=== PATIENT | female | born 1970 | race Two or more races ===

== ENCOUNTER 2020-04-06 19:35 | Inpatient (IN) | payer SELFPAY ==
[~2020-04-06] VITALS: Ht 162.6 cm; Wt 72.3 kg
--- NOTE | 2020-04-06 19:43 | Emergency Room Report ---
History of Present Illness General Chief Complaint: Dyspnea/Respdistress Source: Patient, EMS Present Illness HPI Patient presents with complaints of shortness of breath Brought in by paramedics from home patient has been short of breath for the past 2 days Increased cough and congestion Subjective low-grade fever denies any vomiting or diarrhea she does have mild Myalgia as well diffusely denies any focal weakness denies any recent travel Unknown regarding covid-19 contact Allergies: Coded Allergies: No Known Allergies (Unverified , 04/06/20) COVID-19 Screening Contact w/high risk pt: No Recent Travel to affected area: No Experienced COVID-19 symptoms?: Yes COVID-19 symptoms experienced: Shortness of Breath COVID-19 Testing performed TRANSLATOR: No Patient History Past Medical History: see triage record Reviewed Nursing Documentation: PMH: Agreed; PSxH: Agreed Nursing Documentation-PMH Past Medical History: No History, Except For Hx Cardiac Problems: No Hx Hypertension: No Hx Pacemaker: No Hx Asthma: Yes Hx COPD: No Hx Diabetes: Yes Hx Cancer: No Hx Gastrointestinal Problems: No Hx Dialysis: No History Of Psychiatric Problem: No Hx Neurological Problems: No Hx Seizures: No Review of Systems All Other Systems: negative except mentioned in HPI Physical Exam Vital Signs Date Time Temp Pulse Resp B/P (MAP) Pulse Ox O2 Delivery O2 Flow Rate FiO2 04/06/20 19:28 99.9 106 18 108/76 (87) 98 Non-Rebreather 15.0 Sp02 EP Interpretation: reviewed, normal General Appearance: mild distress - short of breath Head: normocephalic, atraumatic Eyes: bilateral eye PERRL, bilateral eye EOMI ENT: hearing grossly normal, normal pharynx, TMs + canals normal, uvula midline Neck: full range of motion, supple, no meningismus, no bony tend Respiratory: no accessory muscle use, crackles - Bilaterally and appears tachypneic Cardiovascular #1: regular rate, rhythm, tachycardia Gastrointestinal: normal bowel sounds, non tender, soft, no mass, no organomegaly, non-distended, no guarding, no hernia, no pulsatile mass, no rebound Genitourinary: no CVA tenderness Musculoskeletal: normal inspection Neurologic: motor strength/tone normal, oriented x3, sensory intact, responsive Psychiatric: normal inspection Skin: no rash Lymphatic: normal inspection, no adenopathy Procedures Critical Care Time Critical Care Time 50 minutes for multiple re-evaluations initial critical presentation concern for respiratory deterioration and possible not including any procedural time Medical Decision Making Diagnostic Impression: Primary Impression: Dyspnea Additional Impressions: Pneumonia COVID-19 ER Course Multiple differentials including but not limited to cardiac, cardiopulmonary, infectious process entertained Patient remains on high flow oxygenation X-ray imaging does show concerning findings of bilateral patchy infiltrates consistent with likely covid-19 Patient has further testing performed further IV hydration antibiotics And admitted for further inpatient care in serious and concerning condition Labs Test 04/06/20 19:45 White Blood Count 6.8 K/UL (4.8-10.8) Red Blood Count 4.87 M/UL (4.20-5.40) Hemoglobin 15.1 G/DL (12.0-16.0) Hematocrit 46.0 % (37.0-47.0) Mean Corpuscular Volume 94 FL (80-99) Mean Corpuscular Hemoglobin 31.0 PG (27.0-31.0) Mean Corpuscular Hemoglobin Concent 32.9 G/DL (32.0-36.0) Red Cell Distribution Width 12.9 % (11.6-14.8) Platelet Count 264 K/UL (150-450) Mean Platelet Volume 8.2 FL (6.5-10.1) Neutrophils (%) (Auto) 74.4 % (45.0-75.0) Lymphocytes (%) (Auto) 17.2 % (20.0-45.0) Monocytes (%) (Auto) 7.2 % (1.0-10.0) Eosinophils (%) (Auto) 0.2 % (0.0-3.0) Basophils (%) (Auto) 1.0 % (0.0-2.0) Sodium Level 135 MMOL/L (136-145) Potassium Level 6.1 MMOL/L (3.5-5.1) Chloride Level 98 MMOL/L (98-107) Carbon Dioxide Level 23 MMOL/L (21-32) Anion Gap 13 mmol/L (5-15) Blood Urea Nitrogen 10 mg/dL (7-18) Creatinine 0.4 MG/DL (0.55-1.30) Estimat Glomerular Filtration Rate > 60 mL/min (>60) Glucose Level 262 MG/DL (74-106) Lactic Acid Level 2.10 mmol/L (0.4-2.0) Calcium Level 7.6 MG/DL (8.5-10.1) Total Bilirubin 0.9 MG/DL (0.2-1.0) Aspartate Amino Transf (AST/SGOT) 65 U/L (15-37) Alanine Aminotransferase (ALT/SGPT) 35 U/L (12-78) Alkaline Phosphatase 88 U/L (46-116) Total Creatine Kinase 228 U/L (26-308) Creatine Kinase MB < 0.5 NG/ML (0.0-3.6) Creatine Kinase MB Relative Index 0.2 Troponin I 0.000 ng/mL (0.000-0.056) Pro-B-Type Natriuretic Peptide 61 pg/mL (0-125) Total Protein 7.6 G/DL (6.4-8.2) Albumin 2.3 G/DL (3.4-5.0) Globulin 5.3 g/dL Albumin/Globulin Ratio 0.4 (1.0-2.7) Lipase 265 U/L (73-393) Rhythm Strip Diag. Results EP Interpretation: yes Rate: 105 Rhythm: no PVC's, no ectopy, other - sinus Tach Chest X-Ray Diagnostic Results Chest X-Ray Diagnostic Results : Chest X-Ray Ordered: Yes # of Views/Limited/Complete: 1 View Indication: Shortness of Breath EP Interpretation: Yes Interpretation: no effusion, no pneumothorax, other - Bilateral patchy infiltrates Impression: Other - Bilateral patchy infiltrates Electronically Signed by: Jennifer Rivera DO Last Vital Signs Date Time Temp Pulse Resp B/P (MAP) Pulse Ox O2 Delivery O2 Flow Rate FiO2 04/06/20 19:28 99.9 106 18 108/76 (87) 98 Non-Rebreather 15.0 Status: improved Disposition: ADMITTED INPATIENT Condition: Critical Jennifer Rivera DO Apr 06, 2020 19:43
[2020-04-06 19:55] VITALS: BP 115/76
--- NOTE | 2020-04-06 20:00 | NUR ---
ED Nurse Note: pt BREANA MORAN RA 94 from home c/o SOB, fever and productive cough x 3 days. pt arrived with NRB mask with O2 at 15L satting at 99%, EMS report that pt was satting at 89% on RA. pt states that she has also been vomiting for 3 days, states that she took nyquil at 0800 today and used her albuterol inhaler at home without relief of symptoms. pt is noted to be tachpneic, skin is warm dry and intact, she is AOx4. oral temp was 98.1
[2020-04-06 20:18] LABS: EOSINOPHILS % (AUTO) 0.2 % (0.0-3.0); HEMOGLOBIN 15.1 G/DL (12.0-16.0); LYMPHOCYTES % (AUTO) 17.2 % (20.0-45.0); MEAN CORPUSCULAR VOLUME 94 FL (80-99); MONOCYTES % (AUTO) 7.2 % (1.0-10.0); NEUTROPHILS % (AUTO) 74.4 % (45.0-75.0); PLATELET COUNT 264 K/UL (150-450); RED BLOOD COUNT 4.87 M/UL (4.20-5.40); RED CELL DISTRIBUTION WIDTH 12.9 % (11.6-14.8); WHITE BLOOD COUNT 6.8 K/UL (4.8-10.8)
--- NOTE | 2020-04-06 20:40 | NUR ---
ED Nurse Note: ERMD gave verbal order to decrease pt's O2 if she could tolerate it. pt put on 6L NC, satting at 95% while talking on the phone
[2020-04-06] MEDS ORDERED: Azithromycin 500 MG in NS 275 ML IV ONE (20:45)
[2020-04-06 20:49] LABS: ALANINE AMINOTRANSFERASE 35 U/L (12-78); ALBUMIN 2.3 G/DL (3.4-5.0); ALBUMIN/GLOBULIN RATIO 0.4 (1.0-2.7); ALKALINE PHOSPHATASE 88 U/L (46-116); ANION GAP 13 mmol/L (5-15); ASPARTATE AMINO TRANSFERASE 65 U/L (15-37); BILIRUBIN,TOTAL 0.9 MG/DL (0.2-1.0); BLOOD UREA NITROGEN 10 mg/dL (7-18); CALCIUM 7.6 MG/DL (8.5-10.1); CARBON DIOXIDE 23 MMOL/L (21-32); CHLORIDE 98 MMOL/L (98-107); CKMB < 0.5 NG/ML (0.0-3.6); CREATINE KINASE 228 U/L (26-308); CREATININE 0.4 MG/DL (0.55-1.30); POTASSIUM 6.1 MMOL/L (3.5-5.1); SODIUM 135 MMOL/L (136-145)
--- NOTE | 2020-04-06 20:50 | NUR ---
ED Nurse Note: received call from lab stating that pt's potassium is 6.1 and that the sample hemolyzed. ERMD gave verbal instruction for AM redraw once pt is admitted to telemetry floor. messaged relayed to lab
[2020-04-06] MEDS ORDERED: ALBUTEROL2.5 MG/3 M INH (21:01)
--- NOTE | 2020-04-06 21:25 | NUR ---
ED Nurse Note: lactic acid redraw sent to lab
--- NOTE | 2020-04-06 21:57 | NUR ---
ED Nurse Note: report given to MARGY Em
--- NOTE | 2020-04-06 22:10 | NUR ---
NURSE NOTES: Received report from MARIE Duggan. Patient transferred from E.R to room 211-1 via [facility] in Covid-19 isolation protocol. Patient is awake, alert and oriented x 4. Oriented to room and telemetry unit. Placed quality assurance monitor, shows sinus rhythm. Patient is on oxygen via nasal cannula @ 6Lpm, saturating 90 %. IV site is on right AC g-20 saline lock that is patent and intact. Safety measures are in placed, call light and bedside table within reach. Will call MD for admission orders.
[2020-04-06 22:30] VITALS: BP 128/61
--- NOTE | 2020-04-06 22:40 | NUR ---
NURSE NOTES: Called Dr. Castro and received admission orders. Will carry out. At this time patient is in stable condition.
[2020-04-06] MEDS ORDERED: Sodium Polystyrene Sulfonate 15gm Powder ORAL ONE (23:30)
[2020-04-07] VITALS: BP 118/66
[2020-04-07 04:00] VITALS: BP 104/51
[2020-04-07 04:10] LABS: ANION GAP 8 mmol/L (5-15); BLOOD UREA NITROGEN 8 mg/dL (7-18); CALCIUM 7.4 MG/DL (8.5-10.1); CARBON DIOXIDE 29 MMOL/L (21-32); CHLORIDE 104 MMOL/L (98-107); CREATININE 0.6 MG/DL (0.55-1.30); POTASSIUM 3.3 MMOL/L (3.5-5.1); SODIUM 140 MMOL/L (136-145)
--- NOTE | 2020-04-07 07:33 | NUR ---
HAND-OFF: Report given to MARIE Garcia. Patient is on bed, awake, no complaints made at this time. Plan of care endorsed.
[2020-04-07 08:00] VITALS: BP 102/66
--- NOTE | 2020-04-07 08:00 | NUR ---
NURSE NOTES: Recvd pt. Pt is AOx4 Malian speaking, pt is on NC @ 5L with O2sat 91-92%, Dr Castro is aware. Pt is on residential monitor showing SR , Pt has right AC 20g c/d/i and locked.Bed in lowest locked position, call light within reach, will continue with plan of care
[2020-04-07] MEDS ORDERED: Azithromycin 250 MG in D5W 275 ML IV SCH ×2 (09:00→22:00)
--- NOTE | 2020-04-07 10:14 | Diagnostic Imaging Report ---
Procedure: XRAY Chest 1v Reason for study: Reason For Exam: SOB Comparison films: None. FINDINGS: A single one view chest is obtained. Vascularity is normal. There are bilateral infiltrates. Cardiac and mediastinal silhouette are within normal limits. CP angles are sharp. The bony thorax appear unremarkable. IMPRESSION: Bilateral infiltrates.
--- NOTE | 2020-04-07 11:58 | NUR ---
CASE MANAGEMENT: REVIEW 50 YEAR OLD FEMALE CC: SOB . Hx ASTHMA SI: COVID-19 R/O . PNA T 99.9 HR 106 RR 35 BP 108/76 SAT 98% NON-REBREATHER FLOW RATE 15.0 NA 135 K 6.1 GLUCOSE 262 IS: AZITHROMYCIN IV X1 NS IVF BOLUS X1 KAYEXALATE 30MG ORAL X1 K-DUR 20MEQ ORAL X1 PATIENT ADMITTED TO TELEMETRY UNIT 04/06/2020 DCP: PATIENT IS FROM HOME
[2020-04-07 12:00] VITALS: BP 126/81
[2020-04-07 16:00] VITALS: BP 127/67
--- NOTE | 2020-04-07 19:30 | NUR ---
NURSE NOTES: Received pt and report from MARIE Garcia. Observed pt resting in bed with both eyes closed; arousable to voice. Pt is A/Ox4. monitor car operator is in placed, IV site intact, asymptomatic, and patent. Bed is in the lowest position and locked. Call light and beside table is within reach. No signs/symptoms of acute distress noted at this time. Will continue plan of care.
--- NOTE | 2020-04-07 19:45 | History and Physical Report ---
DATE OF ADMISSION: 04/06/2020 HISTORY OF PRESENT ILLNESS: This is a 50-year-old female came to the emergency room for short of breath, hypoxia, COVID positive. Patient is in isolation. PAST MEDICAL HISTORY: None. ALLERGIES: None. FAMILY HISTORY: Noncontributory. SOCIAL HISTORY: Lives at home. PHYSICAL EXAMINATION: GENERAL: This is a young female who is currently short of breath and hypoxic on nonrebreathing mask. VITAL SIGNS: Blood pressure 126/81, pulse 80, respirations 19, saturation 93%, temperature 98.1. HEENT: NAD. CHEST: Bilateral scattered crackles. CARDIOVASCULAR: Regular rhythm. Slightly tachycardia. ABDOMEN: Soft. Positive bowel sounds. Nontender. EXTREMITIES: No edema. GENITOURINARY: Deferred. LABORATORY DATA: White counts are normal 6.8, hemoglobin 15. Chemistry panel, BUN 8, creatinine 0.6, glucose is 280, potassium 3.3. IMAGING: Chest x-ray, bilateral infiltrate. ASSESSMENT: 1. COVID pneumonia. 2. Hyperkalemia, now with hypokalemia. 3. Diabetes. PLAN: 1. We will currently continue dexamethasone, azithromycin, and KCl replacement. 2. Continue oxygen and bronchodilator treatments. 3. Pulmonary consult and ID consult. Gokul Castro M.D. DR: GIULIA JOB#: [id number] CC:
[2020-04-07 20:00] VITALS: BP 123/75
[2020-04-07] MEDS: Azithromycin 250 MG in D5W 275 ML IV SCH (22:15)
[2020-04-08] VITALS: BP 132/83
--- NOTE | 2020-04-08 02:30 | NUR ---
NURSE NOTES: Observed pt asleep in bed. No signs/symptoms of acute distress noted at this time. Will continue plan of care.
[2020-04-08 04:00] VITALS: BP 131/77
--- NOTE | 2020-04-08 06:45 | NUR ---
NURSE NOTES: Dr. Castro made aware that pt's COVID-19 swabs came back positive this morning.
--- NOTE | 2020-04-08 07:23 | NUR ---
HAND-OFF: Report given to MARIE Woodson. Plan of care endorsed.
[2020-04-08 08:00] VITALS: BP 108/72
--- NOTE | 2020-04-08 08:30 | NUR ---
NURSE NOTES: Received report from MARIE Wharton. Pt A/O x4. No s/s of acute respiratory and cardiac distress. On O2 2L NC. SL on right AC 20G patent and intact. Bed in low position, side rails up x2 and call light within reach. Will continue to monitor.
[2020-04-08 12:00] VITALS: BP 121/75
--- NOTE | 2020-04-08 15:37 | NUR ---
NURSE NOTES: Spoke with patient with help of Karthik Pollock RN to translate regarding receiving medication Remdesivir IV. She verbally consented to getting the medication with Karthik Pollock RN as witness to getting medication.
--- NOTE | 2020-04-08 15:59 | NUR ---
CASE MANAGEMENT:REVIEW 04/08/20 SI: BILATERAL COVID PNA 97.9 78 20 121/75 93% ON 6L/NC IS: IV REMDESIVIR X1 THEN Q24HRS (TOTAL 5 DOSES) DECADRON PO QD IV AZITHROMYCIN Q24 : TELEMETRY STATUS
[2020-04-08 16:00] VITALS: BP 127/85
[2020-04-08] MEDS ORDERED: Remdesivir Fact Sheet MISC SCH (16:00)
--- NOTE | 2020-04-08 16:30 | NUR ---
NURSE NOTES: Received order from Dr. Castro to transfer patient to med/surg floor. Informed charge nurse MARIE Bernal of order for transfer. Awaiting room.
[2020-04-08] MEDS ORDERED: Loading Dose:Remdesivir 200mg/NS 210ml IV SCH (17:00)
--- NOTE | 2020-04-08 19:23 | NUR ---
HAND-OFF: Report given to MARIE Wharton.
--- NOTE | 2020-04-08 19:25 | NUR ---
NURSE NOTES: Patient received from Kandice SALAZAR. Patient is in stable condition. Calm and comfortable in bed. IV site patent at the Left AC 22G. Bed is low and locked. Call light and bedside table within reach. Has an order for transfer to Med-surg, awaiting transfer. Off glass sagger. Will continue to monitor.
[2020-04-08 20:00] VITALS: BP 147/94
--- NOTE | 2020-04-08 20:45 | Progress Note ---
DATE: 04/08/2020 SUBJECTIVE: This is a 50-year-old female currently overweight, came to the emergency room short of breath and COVID positive. The patient is currently in bed on high oxygen, saturating about 93%. PHYSICAL EXAMINATION: VITAL SIGNS: Her blood pressure is 121/75, pulse 78, no fever. CHEST: Bilateral decreased breath sounds. CARDIOVASCULAR: Regular rhythm. No gallop. No murmur. ABDOMEN: Soft, positive bowel sounds, nontender. EXTREMITIES: No edema. GENITOURINARY: Deferred. LABORATORY DATA: The patient has no laboratories. ASSESSMENT: 1. Hypoxia. 2. COVID pneumonia. PLAN: We will add Remdesivir today. Continue Decadron. Continue Zithromax, oxygen, bronchodilator treatment. Pulmonary and ID is on consult. Gokul Castro M.D. DR: ARIE JOB#: [id number] CC:
--- NOTE | 2020-04-08 21:30 | Consultation ---
DATE OF CONSULTATION: 04/08/2020 PULMONARY CONSULTATION CONSULTING PHYSICIAN: Luke Thomas MD. HISTORY OF PRESENT ILLNESS: This is a 50-year-old female brought in with shortness of breath. Patient has reported this symptom for the last several days. She also reports low-grade fever. She also reports myalgias. There is no reported history of exposure to COVID-19. Patient was seen and worked up in the emergency room. Her imaging studies showed bilateral infiltrates. Patient was hypoxic. Her COVID-19 PCR is positive. PAST MEDICAL HISTORY: Notable for history of asthma, diabetes mellitus. No cardiac history. REVIEW OF SYSTEMS: Denies any headaches, hematemesis, melena, or hematochezia. PHYSICAL EXAMINATION: GENERAL: Reveals a 50-year-old female. HEENT: Unremarkable. CHEST: Diminished breath sounds bilaterally with normal heart sounds. ABDOMEN: Soft. EXTREMITIES: There is no edema. VITAL SIGNS: O2 saturation 93% on 6 liters of oxygen, respirations 20, heart rate is 74, she is afebrile. LABORATORY DATA: Lab testing shows normal CBC and BMP. Potassium 6.1 initially, now 3.3, glucose 218. IMPRESSION: 1. Acute COVID-19 pneumonia with hypoxemia. 2. Diabetes mellitus. 3. Hyperkalemia, now corrected. DISCUSSION: Admit to the hospital. Patient would benefit from IV remdesivir. We will discuss with Dr. Castro. Order oxygen and pulmonary hygiene. Follow carefully. Luke Thomas M.D. DR: DIANA JOB#: [id number] CC:
[2020-04-08] MEDS: Azithromycin 250 MG in D5W 275 ML IV SCH (22:08)
--- NOTE | 2020-04-08 23:10 | NUR ---
TRANSFER TO FLOOR: Patient transferred to [facility] [place], per Dr. Castro. Report given to MARIE Daniels. Belongings list checked/signed and transferred with pt. No signs/symptoms of acute distress noted. Pt in stable condition. Ordered transferred.
--- NOTE | 2020-04-08 23:20 | NUR ---
NURSE NOTES: Received report MARIE Wharton. Patient transferred from [facility]. ANO x4. On nasal cannula 6L with no C/O SOB at this time. No distress noted. Patient is ambulatory. Skin intact. IV intact and patent. Belongings accounted for. Bed locked and in lowest position. Call light in reach. Will continue to monitor.
[2020-04-09] VITALS: BP 135/79
[2020-04-09 04:00] VITALS: BP 132/84
--- NOTE | 2020-04-09 05:32 | Pulmonology Progress Note ---
Subjective Interval Events: Seen by ID; remdesivir started Constitutional: Reports: no symptoms HEENT: Repors: no symptoms Respiratory: Reports: no symptoms Cardiovascular: Reports: no symptoms Gastrointestinal/Abdominal: Reports: no symptoms Genitourinary: Reports: no symptoms Allergies: Coded Allergies: No Known Allergies (Unverified , 04/06/20) Objective Last 24 Hour Vital Signs Date Time Temp Pulse Resp B/P (MAP) Pulse Ox O2 Delivery O2 Flow Rate FiO2 04/09/20 04:00 97.5 73 20 132/84 (100) 91 04/09/20 00:00 98.2 88 20 135/79 (97) 91 04/08/20 21:00 Nasal Cannula 6.0 04/08/20 20:00 99.9 94 19 147/94 (111) 89 04/08/20 16:00 95 04/08/20 16:00 98.6 84 20 127/85 (99) 93 04/08/20 12:00 97.9 78 20 121/75 (90) 93 04/08/20 12:00 78 04/08/20 12:00 Nasal Cannula 6.0 04/08/20 08:00 98.1 82 20 108/72 (84) 93 04/08/20 08:00 82 Intake and Output 04/08/20 04/09/20 19:00 07:00 Intake Total 500 ml 500 ml Balance 500 ml 500 ml Intake Oral 500 ml 500 ml # Voids 2 2 General Appearance: no acute distress HEENT: normocephalic Respiratory: chest wall non-tender, decreased breath sounds Cardiovascular: normal peripheral pulses, normal rate Abdomen: normal bowel sounds Microbiology Date/Time Source Procedure Growth Status 04/06/20 20:00 Blood Blood Culture - Preliminary NO GROWTH AFTER 48 HOURS Resulted 04/06/20 19:45 Blood Blood Culture - Preliminary NO GROWTH AFTER 48 HOURS Resulted 04/06/20 19:45 Nasopharynx Coronavirus COVID-19 PCR ([facility]) - Final Complete Current Medications Medications (Trade) Dose Ordered Sig/Sanaz Route PRN Reason Start Time Stop Time Status Last Admin Dose Admin Azithromycin 250 mg/Dextrose 275 ml @ 275 mls/hr Q24HRS IV 04/09/20 23:00 04/14/20 22:59 Dexamethasone (Decadron) 6 mg DAILY ORAL 04/09/20 09:00 05/08/20 08:59 Remdesivir 100 mg/ Sodium Chloride 250 ml @ 250 mls/hr Q24H IV 04/09/20 17:00 04/12/20 17:59 Assessment/Plan Assessment/Plan IMPRESSION: 1. Acute COVID-19 pneumonia with hypoxemia. 2. Diabetes mellitus. 3. Hyperkalemia, now corrected. DISCUSSION: Continue IV remdesivir. Continue oxygen and pulmonary hygiene. Follow carefully. Arnold Avendano Omar Syed MD Apr 09, 2020 05:32
[2020-04-09 05:47] LABS: BASOPHILS % (AUTO) 0.4 % (0.0-2.0); EOSINOPHILS % (AUTO) 0.1 % (0.0-3.0); HEMOGLOBIN 13.7 G/DL (12.0-16.0); LYMPHOCYTES % (AUTO) 23.1 % (20.0-45.0); MEAN CORPUSCULAR VOLUME 94 FL (80-99); MONOCYTES % (AUTO) 7.9 % (1.0-10.0); NEUTROPHILS % (AUTO) 68.5 % (45.0-75.0); PLATELET COUNT 394 K/UL (150-450); RED BLOOD COUNT 4.45 M/UL (4.20-5.40); RED CELL DISTRIBUTION WIDTH 12.2 % (11.6-14.8); WHITE BLOOD COUNT 6.9 K/UL (4.8-10.8)
--- NOTE | 2020-04-09 05:53 | NUR ---
NURSE NOTES: Patient's oxygen saturation ranging between 85-91% on 6L nasal cannula. Left message for Dr. Thomas. Awaiting call back. brown stock washer made aware. Will continue to monitor the patient.
[2020-04-09 07:07] LABS: ALANINE AMINOTRANSFERASE 23 U/L (12-78); ALBUMIN/GLOBULIN RATIO 0.4 (1.0-2.7); ALKALINE PHOSPHATASE 83 U/L (46-116); ANION GAP 10 mmol/L (5-15); ASPARTATE AMINO TRANSFERASE 22 U/L (15-37); BILIRUBIN,DIRECT < 0.1 MG/DL (0.0-0.3); BILIRUBIN,TOTAL 0.3 MG/DL (0.2-1.0); BLOOD UREA NITROGEN 8 mg/dL (7-18); CALCIUM 8.3 MG/DL (8.5-10.1); CARBON DIOXIDE 25 MMOL/L (21-32); CHLORIDE 104 MMOL/L (98-107); CREATININE 0.5 MG/DL (0.55-1.30); POTASSIUM 3.5 MMOL/L (3.5-5.1); SODIUM 139 MMOL/L (136-145)
--- NOTE | 2020-04-09 07:23 | NUR ---
NURSE NOTES: Report received from MARIE Daniels. Patient is in bed, no SOB, alert and oriented x 4, bed in lowest position with breaks engaged and alarm on, IV line on left AC patent and intact, on droplet and contact isolation for COVID 19, on 02 at 6 L/min tolerating well, denies any pain or discomfort at this time, will continue to monitor and proceed with plan of care. Call light within reach.
[2020-04-09 08:00] VITALS: BP 123/65
--- NOTE | 2020-04-09 10:27 | NUR ---
CASE MANAGEMENT:REVIEW SI;BILATERAL COVID-19 PNEUMONIA. 99.9 94 20 147/94 89% 6L NC BG 263 ALB 2.0 IS;ZITHROMAX IV Q24 REMDESIVIR IV Q24 DEXAMETHASONE PO QD MED SURG STATUS DCP;PATIENT IS FROM HOME
[2020-04-09 12:00] VITALS: BP 131/76
--- NOTE | 2020-04-09 12:15 | Consultation ---
DATE OF CONSULTATION: 04/09/2020 INFECTIOUS DISEASE CONSULTATION CONSULTING PHYSICIAN: David Mercedes MD. REFERRING PHYSICIAN: Mirza Castro MD. REASON FOR CONSULTATION: COVID-19 pneumonia. HISTORY OF PRESENTING ILLNESS: This is a 50-year-old lady with history of diabetes and asthma, who came in with shortness of breath. She was found to be COVID-19 positive and an Infectious Disease consultation has been obtained for antibiotics. PAST MEDICAL HISTORY: 1. History of diabetes. 2. History of asthma. SOCIAL HISTORY: She does not smoke, drink, or use drugs. FAMILY HISTORY: Noncontributory. REVIEW OF SYSTEMS: RESPIRATORY: No fever or chills. No cough. She does have shortness of breath. No chest pain. CARDIAC: No chest pain. No palpitation. No dizziness. No syncope. GASTROINTESTINAL: No nausea. No vomiting. No abdominal pain or diarrhea. MEDICATIONS: As an inpatient, she is on azithromycin. Remdesivir was started yesterday, dexamethasone. ALLERGIES: No known drug allergies. PHYSICAL EXAMINATION: VITAL SIGNS: Temperature of 97.5, T-max of 99.9, pulse of 72, respiratory rate 18, blood pressure 123/65. O2 saturation of 91% on 6 liters oxygen Examination is deferred due to COVID-19. LABORATORY AND DIAGNOSTIC DATA: White count 6.9, hemoglobin 13.7, hematocrit 42, MCV 94, platelet count of 394,000 with neutrophils of 68%. Sodium 139, potassium 3.5, chloride 104, bicarb 25, BUN 8, creatinine 0.5. Glucose 263. Calcium 8.3. Total bilirubin 0.3, direct bilirubin less than 0.1. AST 22, ALT 23, alkaline phosphatase 83. Total protein 7.2, albumin of 2. Lipase of 265. Blood cultures are negative. 04/06/2020, COVID-19 test was positive. Chest x-ray showing bilateral infiltrates. ASSESSMENT: This is a 50-year-old lady with history of diabetes and asthma, who comes in with shortness of breath and is found to have, 1. COVID-19 pneumonia on 6 liters of oxygen. O2 saturation 91%. 2. Diabetes. 3. Asthma. PLAN: 1. The patient was started on Remdesivir yesterday. Continue three more days. 2. Discontinue azithromycin. 3. The patient was started on dexamethasone yesterday. Continue 8 more days. 4. We will follow up cultures. 5. Continue isolation. I would like to thank Dr. Castro for this consultation. David Mercedes M.D. DR: EWA JOB#: [id number] CC:
[2020-04-09 16:00] VITALS: BP 129/66
[2020-04-09] MEDS: Remdesivir 100mg 100 MG in NS 230 ML IV SCH (16:33)
[2020-04-09] MEDS ORDERED: Maintenance Dose:Remdesivir 100mg/NS 230ml x 4 Doses IV SCH (17:00)
--- NOTE | 2020-04-09 19:20 | NUR ---
NURSE NOTES: received patient on bed, awake and verbally responsive. with iv line on the left ac, saline lock. denies any pain or discomfort. cannula at 6 lpm. no sob. continent x2. reiterated to call and ask for assistance. call light and light button within easy reach. bed locked and in lowest position. will continue plan of care.
--- NOTE | 2020-04-09 19:46 | NUR ---
HAND-OFF: Report given to MARIE Ayers.
[2020-04-09 20:00] VITALS: BP 143/90
--- NOTE | 2020-04-09 21:30 | Progress Note ---
DATE: 04/09/2020 SUBJECTIVE: This is a 50-year-old obese female on high oxygen. Short of breath is improving, tachycardia time to time. PHYSICAL EXAMINATION: VITAL SIGNS: Stable. CHEST: Bilateral decreased breath sounds. CARDIOVASCULAR: Regular rhythm. ABDOMEN: Soft. EXTREMITIES: CCE. ASSESSMENT: 1. COVID pneumonia. 2. Obesity. PLAN: 1. We will currently continue antibiotic. 2. Continue isolation and bronchodilator treatments. Gokul Castro M.D. DR: Kemar JOB#: [id number] CC:
[2020-04-09] MEDS ORDERED: Azithromycin 250 MG in D5W 275 ML IV SCH (23:00)
[2020-04-10] VITALS: BP 140/87
[2020-04-10 04:00] VITALS: BP 131/89
[2020-04-10 06:14] LABS: BASOPHILS % (AUTO) 0.8 % (0.0-2.0); EOSINOPHILS % (AUTO) 0.3 % (0.0-3.0); HEMATOCRIT 43.4 % (37.0-47.0); HEMOGLOBIN 14.5 G/DL (12.0-16.0); LYMPHOCYTES % (AUTO) 23.9 % (20.0-45.0); MEAN CORPUSCULAR VOLUME 93 FL (80-99); MONOCYTES % (AUTO) 6.7 % (1.0-10.0); NEUTROPHILS % (AUTO) 68.3 % (45.0-75.0); PLATELET COUNT 454 K/UL (150-450); RED BLOOD COUNT 4.65 M/UL (4.20-5.40); RED CELL DISTRIBUTION WIDTH 12.4 % (11.6-14.8); WHITE BLOOD COUNT 7.1 K/UL (4.8-10.8)
[2020-04-10 06:29] LABS: ALANINE AMINOTRANSFERASE 28 U/L (12-78); ALBUMIN 2.2 G/DL (3.4-5.0); ALBUMIN/GLOBULIN RATIO 0.4 (1.0-2.7); ALKALINE PHOSPHATASE 89 U/L (46-116); ANION GAP 15 mmol/L (5-15); ASPARTATE AMINO TRANSFERASE 28 U/L (15-37); BILIRUBIN,DIRECT < 0.1 MG/DL (0.0-0.3); BILIRUBIN,TOTAL 0.2 MG/DL (0.2-1.0); BLOOD UREA NITROGEN 12 mg/dL (7-18); CALCIUM 8.2 MG/DL (8.5-10.1); CARBON DIOXIDE 19 MMOL/L (21-32); CHLORIDE 104 MMOL/L (98-107); CREATININE 0.6 MG/DL (0.55-1.30); SODIUM 138 MMOL/L (136-145)
--- NOTE | 2020-04-10 07:32 | NUR ---
HAND-OFF: Report given to danyelle zavala.patient is on bed, awake.no sob. afebrile. call light and light button within easy reach. plan of care endorsed.
--- NOTE | 2020-04-10 07:49 | NUR ---
NURSE NOTES: Report received from Andria SALAZAR. Patient seen on rounds, AxOx4, Syrian speaking but can speak some Portuguese, not in distress, on O2 at 6lpm via NC, afebrile. PIV on LAC patent and intact. Pt is continent and ambulatory. Isolation precautions maintained, bed low and locked, siderails up x2, call light placed within reach and instructed to call nurse for assistance. Will continue to monitor.
[2020-04-10 08:00] VITALS: BP 122/79
--- NOTE | 2020-04-10 10:04 | Pulmonology Progress Note ---
Subjective Interval Events: Seen by ID; etta Constitutional: Reports: no symptoms HEENT: Repors: no symptoms Respiratory: Reports: no symptoms Cardiovascular: Reports: no symptoms Gastrointestinal/Abdominal: Reports: no symptoms Genitourinary: Reports: no symptoms Allergies: Coded Allergies: No Known Allergies (Unverified , 04/06/20) Objective Last 24 Hour Vital Signs Date Time Temp Pulse Resp B/P (MAP) Pulse Ox O2 Delivery O2 Flow Rate FiO2 04/10/20 08:00 97.5 72 30 122/79 (93) 92 04/10/20 04:00 97.8 67 18 131/89 (103) 94 04/10/20 00:00 98.4 70 18 140/87 (104) 95 04/09/20 20:00 97.5 67 18 143/90 (107) 95 04/09/20 16:00 97.5 80 18 129/66 (87) 90 04/09/20 12:00 98.2 77 18 131/76 (94) 92 Intake and Output 04/09/20 04/10/20 19:00 07:00 Intake Total 300 ml 400 ml Balance 300 ml 400 ml Intake Oral 300 ml 400 ml # Voids 2 2 Objective deferred due to COVID Laboratory Tests 04/10/20 05:30: Sodium Level 138, Potassium Level 4.0, Chloride Level 104, Carbon Dioxide Level 19L, Anion Gap 15, Blood Urea Nitrogen 12, Creatinine 0.6, Estimat Glomerular Filtration Rate > 60, Glucose Level 286H, Calcium Level 8.2L, Total Bilirubin 0.2, Direct Bilirubin < 0.1, Aspartate Amino Transf (AST/SGOT) 28, Alanine Aminotransferase (ALT/SGPT) 28, Alkaline Phosphatase 89, Total Protein 7.4, Albumin 2.2L, Globulin 5.2, Albumin/Globulin Ratio 0.4L 04/10/20 06:00: White Blood Count 7.1, Red Blood Count 4.65, Hemoglobin 14.5, Hematocrit 43.4, Mean Corpuscular Volume 93, Mean Corpuscular Hemoglobin 31.1H, Mean Corpuscular Hemoglobin Concent 33.4, Red Cell Distribution Width 12.4, Platelet Count 454H, Mean Platelet Volume 6.8, Neutrophils (%) (Auto) 68.3, Lymphocytes (%) (Auto) 23.9, Monocytes (%) (Auto) 6.7, Eosinophils (%) (Auto) 0.3, Basophils (%) (Auto ) 0.8 Current Medications Medications (Trade) Dose Ordered Sig/Sanaz Route PRN Reason Start Time Stop Time Status Last Admin Dose Admin Dexamethasone (Decadron) 6 mg DAILY ORAL 04/09/20 09:00 05/08/20 08:59 04/10/20 08:46 Remdesivir 100 mg/ Sodium Chloride 250 ml @ 250 mls/hr Q24H IV 04/09/20 17:00 04/12/20 17:59 04/09/20 16:33 Assessment/Plan Assessment/Plan 1. COVID-19 pneumonia 2. Diabetes. 3. Asthma. 4. Hypoxemia PLAN care noted ID noted Remdesivir isolation monitor imaging respiratory care impression, plan, and exam edited and reviewed in detail care discussed with Dariel Gibson MD Apr 10, 2020 10:04
--- NOTE | 2020-04-10 10:37 | Infectious Diseases Prog Note ---
Assessment/Plan Assessment/Plan antibiotics : remdesivir 6.25.20 - A 1. COVID-19 pneumonia on 6 liters of oxygen. O2 saturation 92%. patient aware benefits outweigh risks, consents to use of remdesivir 2. Diabetes. 3. Asthma P 1. continue remdesivir EUA day 3 2. continue dexamethasone day 3 3. continue isolation Subjective Constitutional: Denies: fever, chills Respiratory: Reports: shortness of breath; Denies: dry cough Gastrointestinal/Abdominal: Denies: nausea, vomiting, diarrhea Musculoskeletal: Denies: pain Allergies: Coded Allergies: No Known Allergies (Unverified , 04/06/20) Objective Last 24 Hour Vital Signs Date Time Temp Pulse Resp B/P (MAP) Pulse Ox O2 Delivery O2 Flow Rate FiO2 04/10/20 08:00 97.5 72 30 122/79 (93) 92 04/10/20 04:00 97.8 67 18 131/89 (103) 94 04/10/20 00:00 98.4 70 18 140/87 (104) 95 04/09/20 20:00 97.5 67 18 143/90 (107) 95 04/09/20 16:00 97.5 80 18 129/66 (87) 90 04/09/20 12:00 98.2 77 18 131/76 (94) 92 Height (Feet): 5 Height (Inches): 4.00 Weight (Pounds): 159 Laboratory Tests Test 04/10/20 05:30 04/10/20 06:00 Sodium Level 138 MMOL/L (136-145) Potassium Level 4.0 MMOL/L (3.5-5.1) Chloride Level 104 MMOL/L (98-107) Carbon Dioxide Level 19 MMOL/L (21-32) L Anion Gap 15 mmol/L (5-15) Blood Urea Nitrogen 12 mg/dL (7-18) Creatinine 0.6 MG/DL (0.55-1.30) Estimat Glomerular Filtration Rate > 60 mL/min (>60) Glucose Level 286 MG/DL (74-106) H Calcium Level 8.2 MG/DL (8.5-10.1) L Total Bilirubin 0.2 MG/DL (0.2-1.0) Direct Bilirubin < 0.1 MG/DL (0.0-0.3) Aspartate Amino Transf (AST/SGOT) 28 U/L (15-37) Alanine Aminotransferase (ALT/SGPT) 28 U/L (12-78) Alkaline Phosphatase 89 U/L (46-116) Total Protein 7.4 G/DL (6.4-8.2) Albumin 2.2 G/DL (3.4-5.0) L Globulin 5.2 g/dL Albumin/Globulin Ratio 0.4 (1.0-2.7) L White Blood Count 7.1 K/UL (4.8-10.8) Red Blood Count 4.65 M/UL (4.20-5.40) Hemoglobin 14.5 G/DL (12.0-16.0) Hematocrit 43.4 % (37.0-47.0) Mean Corpuscular Volume 93 FL (80-99) Mean Corpuscular Hemoglobin 31.1 PG (27.0-31.0) H Mean Corpuscular Hemoglobin Concent 33.4 G/DL (32.0-36.0) Red Cell Distribution Width 12.4 % (11.6-14.8) Platelet Count 454 K/UL (150-450) H Mean Platelet Volume 6.8 FL (6.5-10.1) Neutrophils (%) (Auto) 68.3 % (45.0-75.0) Lymphocytes (%) (Auto) 23.9 % (20.0-45.0) Monocytes (%) (Auto) 6.7 % (1.0-10.0) Eosinophils (%) (Auto) 0.3 % (0.0-3.0) Basophils (%) (Auto) 0.8 % (0.0-2.0) Current Medications Medications (Trade) Dose Ordered Sig/Sanaz Route PRN Reason Start Time Stop Time Status Last Admin Dose Admin Dexamethasone (Decadron) 6 mg DAILY ORAL 04/09/20 09:00 05/08/20 08:59 04/10/20 08:46 Remdesivir 100 mg/ Sodium Chloride 250 ml @ 250 mls/hr Q24H IV 04/09/20 17:00 04/12/20 17:59 04/09/20 16:33 David Mercedes MD Apr 10, 2020 10:37
[2020-04-10 12:00] VITALS: BP 129/81
--- NOTE | 2020-04-10 14:36 | NUR ---
CASE MANAGEMENT: REVIEW 04/10/2020 SI: COVID-19 pneumonia VS: T 97.5 HR 72 RR 30 B/P 122/79 SATS 92% ON LABS: CO2 19 GLU 286 CA 8.2 IS:DECADRON PO QD REMDESIVIR IV Q24H MED/SURG
[2020-04-10 16:00] VITALS: BP 150/92
[2020-04-10] MEDS: Remdesivir 100mg 100 MG in NS 230 ML IV SCH (16:58)
--- NOTE | 2020-04-10 19:23 | NUR ---
HAND-OFF: Report given to Joseu RN.
--- NOTE | 2020-04-10 19:25 | NUR ---
NURSE NOTES: Patient alert, awake, and verbally responsive in [place]. Denies pain or discomfort. Breathing unlabored on 6L O2 via NC. Ambulatory. Bed placed in lowest level with brake and siderails for patient safety. IV noted intact. Will continue to monitor and provide care as ordered. Call light placed within reach and encouraged to use.
[2020-04-10 20:00] VITALS: BP 139/64
--- NOTE | 2020-04-10 22:44 | Progress Note ---
DATE: 04/10/2020 SUBJECTIVE: This is a 50-year-old, currently obese, came in with short of breath and recurrent pneumonia. The patient is on high-flow oxygen and awake, alert. PHYSICAL EXAMINATION: VITAL SIGNS: Most vital signs are stable. CHEST: Bilateral decreased breath sounds. CARDIOVASCULAR: Regular rhythm. ABDOMEN: Soft. EXTREMITIES: CCE. ASSESSMENT: 1. COVID pneumonia. 2. Obesity. PLAN: 1. We will continue current treatment. 2. Pulmonary is on consult. Gokul Castro M.D. DR: KEN JOB#: [id number] CC:
[2020-04-11] VITALS: BP 130/83
[2020-04-11 04:00] VITALS: BP 99/65
--- NOTE | 2020-04-11 05:15 | NUR ---
NURSE NOTES: Blood drawn for labs. Specimen sent to laboratory.
[2020-04-11 06:59] LABS: BASOPHILS % (AUTO) 0.5 % (0.0-2.0); EOSINOPHILS % (AUTO) 0.3 % (0.0-3.0); HEMATOCRIT 42.8 % (37.0-47.0); HEMOGLOBIN 13.9 G/DL (12.0-16.0); LYMPHOCYTES % (AUTO) 24.3 % (20.0-45.0); MEAN CORPUSCULAR VOLUME 94 FL (80-99); MONOCYTES % (AUTO) 7.4 % (1.0-10.0); NEUTROPHILS % (AUTO) 67.5 % (45.0-75.0); PLATELET COUNT 490 K/UL (150-450); RED BLOOD COUNT 4.54 M/UL (4.20-5.40); RED CELL DISTRIBUTION WIDTH 12.7 % (11.6-14.8); WHITE BLOOD COUNT 8.5 K/UL (4.8-10.8)
[2020-04-11 07:01] LABS: ALANINE AMINOTRANSFERASE 37 U/L (12-78); ALBUMIN 2.3 G/DL (3.4-5.0); ALBUMIN/GLOBULIN RATIO 0.5 (1.0-2.7); ALKALINE PHOSPHATASE 90 U/L (46-116); ANION GAP 8 mmol/L (5-15); ASPARTATE AMINO TRANSFERASE 26 U/L (15-37); BILIRUBIN,DIRECT 0.1 MG/DL (0.0-0.3); BILIRUBIN,TOTAL 0.3 MG/DL (0.2-1.0); BLOOD UREA NITROGEN 16 mg/dL (7-18); CARBON DIOXIDE 26 MMOL/L (21-32); CHLORIDE 103 MMOL/L (98-107); CREATININE 0.6 MG/DL (0.55-1.30); POTASSIUM 3.7 MMOL/L (3.5-5.1); SODIUM 137 MMOL/L (136-145)
--- NOTE | 2020-04-11 07:19 | NUR ---
HAND-OFF: Report given to MARIE Meyer. Made rounds with receiving RN. Plan of care endorsed.
--- NOTE | 2020-04-11 07:23 | NUR ---
NURSE NOTES: Report received from Minsu RN. Patient seen on rounds, asleep but easily rousable, on O2 at 6lpm via NC, not in distress, sats stable. Afebrile. PIV on left AC patent and intact. Pt is continent and ambulatory. Isolation precautions maintained. Bed low and locked, siderails up x2, call light placed within reach and instructed to call nurse for assistance. Will continue to monitor.
[2020-04-11 08:00] VITALS: BP 90/52
--- NOTE | 2020-04-11 08:28 | Pulmonology Progress Note ---
Subjective Interval Events: Seen by ID; etta Constitutional: Denies: fever, chills HEENT: Repors: no symptoms Respiratory: Reports: no symptoms Cardiovascular: Reports: no symptoms Gastrointestinal/Abdominal: Denies: nausea, vomiting, diarrhea Genitourinary: Reports: no symptoms Musculoskeletal: Denies: pain Allergies: Coded Allergies: No Known Allergies (Unverified , 04/06/20) Objective Last 24 Hour Vital Signs Date Time Temp Pulse Resp B/P (MAP) Pulse Ox O2 Delivery O2 Flow Rate FiO2 04/11/20 08:00 97.3 76 20 90/52 (65) 94 04/11/20 04:00 97.9 76 18 99/65 (76) 93 04/11/20 00:00 98.4 68 18 130/83 (99) 95 04/10/20 21:00 Nasal Cannula 6.0 04/10/20 20:00 98.8 89 20 139/64 (89) 96 04/10/20 17:50 Nasal Cannula 6.0 04/10/20 16:00 97.7 59 24 150/92 (111) 94 04/10/20 12:00 98.1 68 28 129/81 (97) 92 Intake and Output 04/10/20 04/11/20 19:00 07:00 Intake Total 850 ml Balance 850 ml Intake Oral 600 ml IV Total 250 ml # Voids 2 2 # Bowel Movements 2 Objective deferred due to COVID Laboratory Tests 04/11/20 05:15: White Blood Count 8.5, Red Blood Count 4.54, Hemoglobin 13.9, Hematocrit 42.8, Mean Corpuscular Volume 94, Mean Corpuscular Hemoglobin 30.6, Mean Corpuscular Hemoglobin Concent 32.5, Red Cell Distribution Width 12.7, Platelet Count 490H, Mean Platelet Volume 7.0, Neutrophils (%) (Auto) 67.5, Lymphocytes (%) (Auto) 24.3, Monocytes (%) (Auto) 7.4, Eosinophils (%) (Auto) 0.3, Basophils (%) (Auto ) 0.5, Sodium Level 137, Potassium Level 3.7, Chloride Level 103, Carbon Dioxide Level 26, Anion Gap 8, Blood Urea Nitrogen 16, Creatinine 0.6, Estimat Glomerular Filtration Rate > 60, Glucose Level 320H, Calcium Level 8.0L, Total Bilirubin 0.3, Direct Bilirubin 0.1, Aspartate Amino Transf (AST/SGOT) 26, Alanine Aminotransferase (ALT/SGPT) 37, Alkaline Phosphatase 90, Total Protein 7.2, Albumin 2.3L, Globulin 4.9, Albumin/Globulin Ratio 0.5L Current Medications Medications (Trade) Dose Ordered Sig/Sanaz Route PRN Reason Start Time Stop Time Status Last Admin Dose Admin Dexamethasone (Decadron) 6 mg DAILY ORAL 04/09/20 09:00 05/08/20 08:59 04/11/20 08:13 Remdesivir 100 mg/ Sodium Chloride 250 ml @ 250 mls/hr Q24H IV 04/09/20 17:00 04/12/20 17:59 04/10/20 16:58 Assessment/Plan Assessment/Plan 1. COVID-19 pneumonia 2. Diabetes. 3. Asthma. 4. Hypoxemia PLAN care noted ID noted Remdesivir isolation monitor imaging respiratory care impression, plan, and exam edited and reviewed in detail care discussed with Dariel Gibson MD Apr 11, 2020 08:28
--- NOTE | 2020-04-11 09:27 | Diagnostic Imaging Report ---
EXAM: XR Chest, 1 View CLINICAL HISTORY: SOB TECHNIQUE: Frontal view of the chest. COMPARISON: April 06, 2020. FINDINGS: Cardiac silhouette is within normal limits allowing for portable technique. Low lung volumes. Bilateral patchy infiltrates. No large pleural effusions. IMPRESSION: Multifocal pneumonia.
[2020-04-11 12:00] VITALS: BP 134/69
--- NOTE | 2020-04-11 14:49 | Infectious Diseases Prog Note ---
Assessment/Plan Assessment/Plan A 1. COVID19 pneumonia 2. Diabetes. 3. Asthma 4. Hypoxemia P 1. continue remdesivir EUA day 4 2. continue dexamethasone day 4 3. continue isolation Subjective ROS Limited/Unobtainable: No Constitutional: Reports: no symptoms Respiratory: Reports: no symptoms Gastrointestinal/Abdominal: Reports: no symptoms Genitourinary: Reports: no symptoms Allergies: Coded Allergies: No Known Allergies (Unverified , 04/06/20) Objective Last 24 Hour Vital Signs Date Time Temp Pulse Resp B/P (MAP) Pulse Ox O2 Delivery O2 Flow Rate FiO2 04/11/20 12:00 97.9 68 20 134/69 (90) 97 04/11/20 09:00 Nasal Cannula 6.0 04/11/20 08:00 97.3 76 20 90/52 (65) 94 04/11/20 04:00 97.9 76 18 99/65 (76) 93 04/11/20 00:00 98.4 68 18 130/83 (99) 95 04/10/20 21:00 Nasal Cannula 6.0 04/10/20 20:00 98.8 89 20 139/64 (89) 96 04/10/20 17:50 Nasal Cannula 6.0 04/10/20 16:00 97.7 59 24 150/92 (111) 94 Height (Feet): 5 Height (Inches): 4.00 Weight (Pounds): 159 General Appearance: no acute distress HEENT: mucous membranes moist Respiratory/Chest: other - oxygenby nasal cannula Cardiovascular: normal rate Abdomen: soft, non tender Extremities: no edema Neurologic/Psychiatric: alert, oriented x 3, responsive Laboratory Tests Test 04/11/20 05:15 White Blood Count 8.5 K/UL (4.8-10.8) Red Blood Count 4.54 M/UL (4.20-5.40) Hemoglobin 13.9 G/DL (12.0-16.0) Hematocrit 42.8 % (37.0-47.0) Mean Corpuscular Volume 94 FL (80-99) Mean Corpuscular Hemoglobin 30.6 PG (27.0-31.0) Mean Corpuscular Hemoglobin Concent 32.5 G/DL (32.0-36.0) Red Cell Distribution Width 12.7 % (11.6-14.8) Platelet Count 490 K/UL (150-450) H Mean Platelet Volume 7.0 FL (6.5-10.1) Neutrophils (%) (Auto) 67.5 % (45.0-75.0) Lymphocytes (%) (Auto) 24.3 % (20.0-45.0) Monocytes (%) (Auto) 7.4 % (1.0-10.0) Eosinophils (%) (Auto) 0.3 % (0.0-3.0) Basophils (%) (Auto) 0.5 % (0.0-2.0) Sodium Level 137 MMOL/L (136-145) Potassium Level 3.7 MMOL/L (3.5-5.1) Chloride Level 103 MMOL/L (98-107) Carbon Dioxide Level 26 MMOL/L (21-32) Anion Gap 8 mmol/L (5-15) Blood Urea Nitrogen 16 mg/dL (7-18) Creatinine 0.6 MG/DL (0.55-1.30) Estimat Glomerular Filtration Rate > 60 mL/min (>60) Glucose Level 320 MG/DL (74-106) H Calcium Level 8.0 MG/DL (8.5-10.1) L Total Bilirubin 0.3 MG/DL (0.2-1.0) Direct Bilirubin 0.1 MG/DL (0.0-0.3) Aspartate Amino Transf (AST/SGOT) 26 U/L (15-37) Alanine Aminotransferase (ALT/SGPT) 37 U/L (12-78) Alkaline Phosphatase 90 U/L (46-116) Total Protein 7.2 G/DL (6.4-8.2) Albumin 2.3 G/DL (3.4-5.0) L Globulin 4.9 g/dL Albumin/Globulin Ratio 0.5 (1.0-2.7) L Current Medications Medications (Trade) Dose Ordered Sig/Sanaz Route PRN Reason Start Time Stop Time Status Last Admin Dose Admin Dexamethasone (Decadron) 6 mg DAILY ORAL 04/09/20 09:00 05/08/20 08:59 04/11/20 08:13 Remdesivir 100 mg/ Sodium Chloride 250 ml @ 250 mls/hr Q24H IV 04/09/20 17:00 04/12/20 17:59 04/10/20 16:58 Tadeo Thacker MD Apr 11, 2020 14:49
--- NOTE | 2020-04-11 15:33 | NUR ---
CASE MANAGEMENT:REVIEW 04/11/20 SI: COVID PNA 97.9 68 20 134/69 97% ON 6L/NC GLUCOSE+320 IS: IV REMDESIVIR Q24 (DOSE#4) DECADRON PO QD : MED/SURG STATUS DCP: FROM HOME
[2020-04-11 16:00] VITALS: BP 144/54
[2020-04-11] MEDS: Remdesivir 100mg 100 MG in NS 230 ML IV SCH (16:41)
[2020-04-11] MEDS ORDERED: ZINC SULFATE220 M1 ORAL (17:09)
[2020-04-11] MEDS ORDERED: OMEPRAZOLE20 M2 ORAL (17:09)
[2020-04-11] MEDS ORDERED: DEXAMETHASONE2 MG PO (17:09)
[2020-04-11] MEDS ORDERED: ALBUTEROL SULF8.5 G1 INH (17:09)
--- NOTE | 2020-04-11 19:00 | Progress Note ---
DATE: 04/11/2020 SUBJECTIVE: This is 50-year-old female, currently in bed, doing better. PHYSICAL EXAMINATION: VITAL SIGNS: Blood pressure 144/54, pulse 74, no fever. CHEST: Bilaterally clear. CARDIOVASCULAR: Regular rhythm. ABDOMEN: Soft. EXTREMITIES: CCE. LABORATORY DATA: White counts are normal. BUN 16, creatinine 0.6, glucose 320. ASSESSMENT AND PLAN: 1. COVID pneumonia. 2. Hyperglycemia, we will titrate Decadron dose. 3. Continue isolation and bronchodilator treatment. 4. Repeat COVID. Gokul Castro M.D. DR: Moise JOB#: [id number] CC:
--- NOTE | 2020-04-11 19:10 | NUR ---
NURSE NOTES: Received report from Tejal SALAZAR. Pt. is up on chair, awkae, alert and oriented. With O2 @ 4lpm via nc, tolerating well. Denies any pain at this time. No SOB noted. Able to transfer from bed to chair unassistedly and with a steady gait. Will continue to monitor.
--- NOTE | 2020-04-11 19:19 | NUR ---
HAND-OFF: Report given to MARIE Rodriguez. Endorsed patient has DC orders for tomorrow and home prescriptions are in chart.
[2020-04-11 20:00] VITALS: BP 113/73
[2020-04-12] VITALS: BP 122/78
[2020-04-12 04:00] VITALS: BP 121/78
--- NOTE | 2020-04-12 07:23 | NUR ---
Report given to Alia SALAZAR. Pt. is in bed awake and sitted having breakfast. In no s/s of distress. O2 sat > 95% RA.
--- NOTE | 2020-04-12 07:28 | NUR ---
NURSE NOTES: Report received from Jose RN. Patient is in bed, no SOB, alert and oriented x 4, bed in lowest position with breaks engaged and alarm on, IV line on left AC patent and intact, on droplet and contact isolation for COVID 19, on 02 at 6 L/min tolerating well, pt denies any pain or discomfort at this time, will continue to monitor and proceed with plan of care. Call light within reach.
[2020-04-12 07:49] LABS: BASOPHILS % (AUTO) 0.4 % (0.0-2.0); EOSINOPHILS % (AUTO) 0.4 % (0.0-3.0); HEMATOCRIT 43.2 % (37.0-47.0); HEMOGLOBIN 14.6 G/DL (12.0-16.0); LYMPHOCYTES % (AUTO) 23.6 % (20.0-45.0); MEAN CORPUSCULAR VOLUME 94 FL (80-99); MONOCYTES % (AUTO) 5.9 % (1.0-10.0); NEUTROPHILS % (AUTO) 69.7 % (45.0-75.0); PLATELET COUNT 441 K/UL (150-450); RED BLOOD COUNT 4.61 M/UL (4.20-5.40); RED CELL DISTRIBUTION WIDTH 12.2 % (11.6-14.8); WHITE BLOOD COUNT 8.9 K/UL (4.8-10.8)
[2020-04-12 07:52] LABS: ALANINE AMINOTRANSFERASE 41 U/L (12-78); ALBUMIN 2.5 G/DL (3.4-5.0); ALBUMIN/GLOBULIN RATIO 0.5 (1.0-2.7); ALKALINE PHOSPHATASE 99 U/L (46-116); ANION GAP 8 mmol/L (5-15); ASPARTATE AMINO TRANSFERASE 23 U/L (15-37); BILIRUBIN,DIRECT < 0.1 MG/DL (0.0-0.3); BILIRUBIN,TOTAL 0.3 MG/DL (0.2-1.0); BLOOD UREA NITROGEN 16 mg/dL (7-18); CALCIUM 8.3 MG/DL (8.5-10.1); CARBON DIOXIDE 26 MMOL/L (21-32); CHLORIDE 101 MMOL/L (98-107); CREATININE 0.6 MG/DL (0.55-1.30); POTASSIUM 4.1 MMOL/L (3.5-5.1); SODIUM 135 MMOL/L (136-145)
[2020-04-12 08:00] VITALS: BP 101/54
--- NOTE | 2020-04-12 10:05 | Pulmonology Progress Note ---
Subjective ROS Limited/Unobtainable: No Interval Events: Seen by ID; remdesivir given Constitutional: Reports: no symptoms HEENT: Repors: no symptoms Respiratory: Reports: no symptoms Cardiovascular: Reports: no symptoms Gastrointestinal/Abdominal: Reports: no symptoms Genitourinary: Reports: no symptoms Musculoskeletal: Denies: pain Allergies: Coded Allergies: No Known Allergies (Unverified , 04/06/20) Objective Last 24 Hour Vital Signs Date Time Temp Pulse Resp B/P (MAP) Pulse Ox O2 Delivery O2 Flow Rate FiO2 04/12/20 09:00 Nasal Cannula 6.0 04/12/20 08:00 98.1 1 18 101/54 (70) 94 04/12/20 04:00 98.6 83 18 121/78 (92) 94 04/12/20 00:00 98.4 94 18 122/78 (93) 93 04/11/20 21:00 Nasal Cannula 6.0 04/11/20 20:00 98.6 94 18 113/73 (86) 93 04/11/20 16:00 98.1 75 20 144/54 (84) 98 04/11/20 12:00 97.9 68 20 134/69 (90) 97 Intake and Output 04/11/20 04/12/20 19:00 07:00 Intake Total 350 ml Balance 350 ml Intake Oral 350 ml # Voids 2 2 Laboratory Tests 04/12/20 05:00: White Blood Count 8.9, Red Blood Count 4.61, Hemoglobin 14.6, Hematocrit 43.2, Mean Corpuscular Volume 94, Mean Corpuscular Hemoglobin 31.7H, Mean Corpuscular Hemoglobin Concent 33.8, Red Cell Distribution Width 12.2, Platelet Count 441, Mean Platelet Volume 6.8, Neutrophils (%) (Auto) 69.7, Lymphocytes (%) (Auto) 23.6, Monocytes (%) (Auto) 5.9, Eosinophils (%) (Auto) 0.4, Basophils (%) (Auto ) 0.4, Sodium Level 135L, Potassium Level 4.1, Chloride Level 101, Carbon Dioxide Level 26, Anion Gap 8, Blood Urea Nitrogen 16, Creatinine 0.6, Estimat Glomerular Filtration Rate > 60, Glucose Level 356H, Calcium Level 8.3L, Total Bilirubin 0.3, Direct Bilirubin < 0.1, Aspartate Amino Transf (AST/SGOT) 23, Alanine Aminotransferase (ALT/SGPT) 41, Alkaline Phosphatase 99, Total Protein 7.5, Albumin 2.5L, Globulin 5.0, Albumin/Globulin Ratio 0.5L Current Medications Medications (Trade) Dose Ordered Sig/Sanaz Route PRN Reason Start Time Stop Time Status Last Admin Dose Admin Dexamethasone (Decadron) 6 mg DAILY ORAL 04/09/20 09:00 05/08/20 08:59 04/12/20 08:28 Remdesivir 100 mg/ Sodium Chloride 250 ml @ 250 mls/hr Q24H IV 04/09/20 17:00 04/12/20 17:59 04/11/20 16:41 Assessment/Plan Assessment/Plan IMPRESSION: 1. Acute COVID-19 pneumonia with hypoxemia. 2. Diabetes mellitus. 3. Hyperkalemia, now corrected. DISCUSSION: Continue IV remdesivir. Continue oxygen and pulmonary hygiene. Follow carefully. Currently on 6L/min O2 Arnold Avendano Omar Syed MD Apr 12, 2020 10:05
--- NOTE | 2020-04-12 10:41 | Infectious Diseases Prog Note ---
Assessment/Plan Assessment/Plan antibiotics : remdesivir 6.25.20 - A 1. COVID-19 pneumonia on 6 liters of oxygen. O2 saturation 94%. 2. Diabetes. 3. Asthma P 1. continue remdesivir EUA day 5 2. continue dexamethasone day 5 3. continue isolation Subjective Constitutional: Denies: fever, chills Respiratory: Reports: shortness of breath - decreased, dry cough - decreased Gastrointestinal/Abdominal: Denies: nausea, vomiting, diarrhea Musculoskeletal: Denies: pain Allergies: Coded Allergies: No Known Allergies (Unverified , 04/06/20) Objective Last 24 Hour Vital Signs Date Time Temp Pulse Resp B/P (MAP) Pulse Ox O2 Delivery O2 Flow Rate FiO2 04/12/20 09:00 Nasal Cannula 6.0 04/12/20 08:00 98.1 1 18 101/54 (70) 94 04/12/20 04:00 98.6 83 18 121/78 (92) 94 04/12/20 00:00 98.4 94 18 122/78 (93) 93 04/11/20 21:00 Nasal Cannula 6.0 04/11/20 20:00 98.6 94 18 113/73 (86) 93 04/11/20 16:00 98.1 75 20 144/54 (84) 98 04/11/20 12:00 97.9 68 20 134/69 (90) 97 Height (Feet): 5 Height (Inches): 4.00 Weight (Pounds): 159 Laboratory Tests Test 04/12/20 05:00 White Blood Count 8.9 K/UL (4.8-10.8) Red Blood Count 4.61 M/UL (4.20-5.40) Hemoglobin 14.6 G/DL (12.0-16.0) Hematocrit 43.2 % (37.0-47.0) Mean Corpuscular Volume 94 FL (80-99) Mean Corpuscular Hemoglobin 31.7 PG (27.0-31.0) H Mean Corpuscular Hemoglobin Concent 33.8 G/DL (32.0-36.0) Red Cell Distribution Width 12.2 % (11.6-14.8) Platelet Count 441 K/UL (150-450) Mean Platelet Volume 6.8 FL (6.5-10.1) Neutrophils (%) (Auto) 69.7 % (45.0-75.0) Lymphocytes (%) (Auto) 23.6 % (20.0-45.0) Monocytes (%) (Auto) 5.9 % (1.0-10.0) Eosinophils (%) (Auto) 0.4 % (0.0-3.0) Basophils (%) (Auto) 0.4 % (0.0-2.0) Sodium Level 135 MMOL/L (136-145) L Potassium Level 4.1 MMOL/L (3.5-5.1) Chloride Level 101 MMOL/L (98-107) Carbon Dioxide Level 26 MMOL/L (21-32) Anion Gap 8 mmol/L (5-15) Blood Urea Nitrogen 16 mg/dL (7-18) Creatinine 0.6 MG/DL (0.55-1.30) Estimat Glomerular Filtration Rate > 60 mL/min (>60) Glucose Level 356 MG/DL (74-106) H Calcium Level 8.3 MG/DL (8.5-10.1) L Total Bilirubin 0.3 MG/DL (0.2-1.0) Direct Bilirubin < 0.1 MG/DL (0.0-0.3) Aspartate Amino Transf (AST/SGOT) 23 U/L (15-37) Alanine Aminotransferase (ALT/SGPT) 41 U/L (12-78) Alkaline Phosphatase 99 U/L (46-116) Total Protein 7.5 G/DL (6.4-8.2) Albumin 2.5 G/DL (3.4-5.0) L Globulin 5.0 g/dL Albumin/Globulin Ratio 0.5 (1.0-2.7) L Current Medications Medications (Trade) Dose Ordered Sig/Sanaz Route PRN Reason Start Time Stop Time Status Last Admin Dose Admin Dexamethasone (Decadron) 6 mg DAILY ORAL 04/09/20 09:00 05/08/20 08:59 04/12/20 08:28 Remdesivir 100 mg/ Sodium Chloride 250 ml @ 250 mls/hr Q24H IV 04/09/20 17:00 04/12/20 17:59 04/11/20 16:41 David Mercedes MD Apr 12, 2020 10:41
[2020-04-12 12:00] VITALS: BP 138/78
--- NOTE | 2020-04-12 14:47 | NUR ---
CASE MANAGEMENT:REVIEW SI;COVID-19 PNA. DM. ASTHMA. 98.6 94 18 101/54 93% 6L NC BG 356 IS;REMDESIVIR IV Q24 DECADRON PO QD MED SURG STATUS DCP;PATIENT IS FROM HOME PLAN;TITRATE O2 CONTINUE REMDESIVIR DC HOME WHEN STABLE
[2020-04-12 16:00] VITALS: BP 100/62
[2020-04-12] MEDS: Remdesivir 100mg 100 MG in NS 230 ML IV SCH (16:27)
--- NOTE | 2020-04-12 18:33 | NUR ---
NURSE NOTES: Patient was discharged home today at 1830 in stable condition accompanied by and uncle. Discharge paper works and inventory signed, no missing belongings noted. IV line and ID band removed. No c/o any discomfort, SOB or pain upon discharge. Patient was educated regarding reportable conditions and was given COVID-19 discharge instructions and verbalized understanding. Vital signs WNL at the time of discharge BP: 113/65 RR: 18 HR: 75 T:98.0 02 sat: 92% on room air. Patient was escorted to the lobby at 1830.
--- NOTE | 2020-04-12 21:00 | Discharge Summary ---
DATE OF ADMISSION: 04/06/2020 DATE OF DISCHARGE: 04/12/2020 HISTORY OF PRESENT ILLNESS: This is a 50-year-old female initially admitted for COVID pneumonia. Patient was admitted on medical floor. Patient was hypoxic, was placed on non-breathing high-flow oxygen. Patient clinically improved. Also added remdesivir. Patient has Pulmonary, ID consult. Patient clinically doing better. She is off oxygen. She is also off Decadron. PHYSICAL EXAMINATION: GENERAL: She is doing better. VITAL SIGNS: Blood pressure 138/78, pulse 66, temperature 97.3, saturation 96% on room air. CHEST: Bilaterally clear. CARDIOVASCULAR: Regular rhythm. ABDOMEN: Soft. EXTREMITIES: No CCE. LABORATORY DATA: White counts are 8.9, hemoglobin 15. Chemistry panel is unremarkable. Last chest x-ray done was on 04/11/2020 showing multifocal pneumonia. ASSESSMENT AND PLAN: COVID pneumonia is improved. Patient is going to go home with p.o. Medrol and PPI as well as albuterol inhaler. Recommended follow up as outpatient. Gokul Castro M.D. DR: GIULIA JOB#: [id number] CC:
--- NOTE | 2020-04-13 16:39 | Discharge Summary ---
Discharge Summary Discharge Summary _ Please see dc summary, dictated by Dr Castro FINAL DIAGNOSIS Confirmed COVID-19 pneumonia Hypoxemia Diabetes mellitus with hyperglycemia Asthma Hyperkalemia -corrected Simona Craig NP Apr 13, 2020 16:39
== END 2020-04-12 18:40 | disposition home or self-care (01) | DRG 177 ==
LOC: EDBD 19:35 → EMR 20:23 → 2E 20:32 → EDBEDREQ 20:41 → 4E 04-08 23:26
DX: U07.1 COVID-19 (principal); J12.89 Other viral pneumonia; R09.02 Hypoxemia; E11.65 Type 2 diabetes mellitus with hyperglycemia; J45.909 Unspecified asthma, uncomplicated; E87.5 Hyperkalemia; E66.9 Obesity, unspecified
CPT/HCPCS: 36415; 71045; 80048; 80053; 82248; 82550; 82553; 83605; 83690; 83880; 84484; 85025; 87040; 93005; 96365; 99291; J7030; J8499